=== PATIENT | female | born 1950 | race Caucasian/White ===

== ENCOUNTER 2018-11-21 15:15 | Emergency (ER) | payer OTHER, MEDICARE ==
[~2018-11-21] VITALS: Ht 162.6 cm; Wt 99.8 kg
[~2018-11-21 15:15] MED LIST: LISHYD2025 PO; METF500 PO; MONT10T PO
== END 2018-11-21 16:06 | disposition home or self-care (01) ==
LOC: ER 15:15
DX: S39.012A Strain of muscle, fascia and tendon of lower back, initial encounter (principal); V49.9XXA Car occupant (driver) (passenger) injured in unspecified traffic accident, initial encounter; Z88.1 Allergy status to other antibiotic agents; Z79.899 Other long term (current) drug therapy; Z79.84 Long term (current) use of oral hypoglycemic drugs
CPT/HCPCS: 72100; 99283-25

== ENCOUNTER 2020-05-08 10:32 | Day surgery (SDC) | payer MEDICARE ==
[~2020-05-08] VITALS: Ht 162.6 cm; Wt 98.9 kg
[2020-05-08] MEDS ORDERED: LOSA50 PO (11:18)
[2020-05-08] MEDS ORDERED: GLIM4 PO (11:19)
[2020-05-08] MEDS ORDERED: LOSA25 PO (11:20)
[2020-05-08] MEDS ORDERED: Pravachol40 MG PO (11:20)
[2020-05-08] MEDS ORDERED: TRADJENTA5 MG PO (11:21)
== END 2020-05-08 13:14 | disposition home or self-care (01) ==
LOC: ORSCSDS 10:32
PROVIDERS: Student in an Organized Health Care Education/Training Program
PROC: 0DB68ZX Excision of Stomach, Via Natural or Artificial Opening Endoscopic, Diagnostic (ICD-10-PCS; principal; 2020-05-08 12:00)
DX: K74.60 Unspecified cirrhosis of liver (principal); I10 Essential (primary) hypertension; K29.70 Gastritis, unspecified, without bleeding; I85.00 Esophageal varices without bleeding; E11.9 Type 2 diabetes mellitus without complications; Z79.84 Long term (current) use of oral hypoglycemic drugs; Z79.899 Other long term (current) drug therapy
CPT/HCPCS: 82947; 88305; 88342; J2704; J7120

== ENCOUNTER 2021-03-01 10:31 | Day surgery (SDC) | payer MEDICARE ==
[~2021-03-01] VITALS: Ht 162.6 cm; Wt 92.9 kg
[~2021-03-01 10:31] MED LIST changes: +Aspir 8181 MG PO; +CENTRUM SILVER1 EAC2; +COQ-10100 MG PO; +FLUT.05NI; +GLIM4 PO; +LOSA25 PO; +LOSA50 PO; +MELATONIN5 M1 PO; +METF500C; +Milk Thistle175 M1 PO; +Pravachol40 MG PO; +TRADJENTA5 MG PO
== END 2021-03-01 13:41 | disposition home or self-care (01) ==
LOC: ORSCSDS 10:31
PROVIDERS: Student in an Organized Health Care Education/Training Program
PROC: 0DBH8ZX Excision of Cecum, Via Natural or Artificial Opening Endoscopic, Diagnostic (ICD-10-PCS; principal; 2021-03-01 12:00)
PROC: 0DBK8ZX Excision of Ascending Colon, Via Natural or Artificial Opening Endoscopic, Diagnostic (ICD-10-PCS; principal; 2021-03-01 12:00)
PROC: 0DBM8ZX Excision of Descending Colon, Via Natural or Artificial Opening Endoscopic, Diagnostic (ICD-10-PCS; principal; 2021-03-01 12:00)
PROC: 0DBL8ZX Excision of Transverse Colon, Via Natural or Artificial Opening Endoscopic, Diagnostic (ICD-10-PCS; principal; 2021-03-01 12:00)
DX: Z86.010 Personal history of colon polyps (principal); D12.3 Benign neoplasm of transverse colon; D12.2 Benign neoplasm of ascending colon; D12.0 Benign neoplasm of cecum; D12.4 Benign neoplasm of descending colon; K57.30 Diverticulosis of large intestine without perforation or abscess without bleeding; K64.8 Other hemorrhoids; K64.4 Residual hemorrhoidal skin tags; E11.9 Type 2 diabetes mellitus without complications; I10 Essential (primary) hypertension; E78.5 Hyperlipidemia, unspecified; K74.60 Unspecified cirrhosis of liver; Z79.4 Long term (current) use of insulin; Z79.899 Other long term (current) drug therapy; Z79.82 Long term (current) use of aspirin; K75.81 Nonalcoholic steatohepatitis (NASH); E66.9 Obesity, unspecified; Z68.35 Body mass index [BMI] 35.0-35.9, adult
CPT/HCPCS: 82947; 88305; J2704; J7120

== ENCOUNTER 2022-06-06 11:26 | Day surgery (SDC) | payer MEDICARE ==
[~2022-06-06] VITALS: Ht 162.6 cm; Wt 92.0 kg
[~2022-06-06 11:26] MED LIST changes: +FLONASE SENSIM5.9 M1; +GLUCOPHAGE1000 M1 PO; +METHIMAZOLE5 M1 PO
== END 2022-06-06 14:10 | disposition home or self-care (01) ==
LOC: ORSCSDS 11:26
PROVIDERS: Student in an Organized Health Care Education/Training Program
PROC: 0DB58ZX Excision of Esophagus, Via Natural or Artificial Opening Endoscopic, Diagnostic (ICD-10-PCS; principal; 2022-06-06 12:45)
PROC: 0DBL8ZX Excision of Transverse Colon, Via Natural or Artificial Opening Endoscopic, Diagnostic (ICD-10-PCS; principal; 2022-06-06 12:45)
PROC: 0DBM8ZX Excision of Descending Colon, Via Natural or Artificial Opening Endoscopic, Diagnostic (ICD-10-PCS; principal; 2022-06-06 12:45)
PROC: 0DBP8ZX Excision of Rectum, Via Natural or Artificial Opening Endoscopic, Diagnostic (ICD-10-PCS; principal; 2022-06-06 12:45)
PROC: 0DBN8ZX Excision of Sigmoid Colon, Via Natural or Artificial Opening Endoscopic, Diagnostic (ICD-10-PCS; principal; 2022-06-06 12:45)
PROC: 0DBK8ZX Excision of Ascending Colon, Via Natural or Artificial Opening Endoscopic, Diagnostic (ICD-10-PCS; principal; 2022-06-06 12:45)
PROC: 0DBH8ZX Excision of Cecum, Via Natural or Artificial Opening Endoscopic, Diagnostic (ICD-10-PCS; principal; 2022-06-06 12:45)
DX: K74.60 Unspecified cirrhosis of liver (principal); K75.81 Nonalcoholic steatohepatitis (NASH); I85.10 Secondary esophageal varices without bleeding; Z86.010 Personal history of colon polyps; D12.2 Benign neoplasm of ascending colon; D12.0 Benign neoplasm of cecum; D12.3 Benign neoplasm of transverse colon; K63.5 Polyp of colon; K55.20 Angiodysplasia of colon without hemorrhage; K29.70 Gastritis, unspecified, without bleeding; K57.30 Diverticulosis of large intestine without perforation or abscess without bleeding; K64.8 Other hemorrhoids; E11.9 Type 2 diabetes mellitus without complications; I10 Essential (primary) hypertension; E78.5 Hyperlipidemia, unspecified; E66.9 Obesity, unspecified; Z68.39 Body mass index [BMI] 39.0-39.9, adult; Z79.899 Other long term (current) drug therapy; Z79.84 Long term (current) use of oral hypoglycemic drugs; Z79.82 Long term (current) use of aspirin
CPT/HCPCS: 82947; 88305; 88342; J0330; J0461; J2405; J2704; J7120